=== PATIENT | male | born 1955 | race Caucasian/White ===

== ENCOUNTER 2018-08-20 07:43 | Day surgery (SDC) | payer OTHER, SELFPAY ==
[2018-08-20 08:12] VITALS: BP 163/96; PULSE 76; RESP 16; TEMP 36.6; O2SAT 97
[2018-08-20 08:39] LABS: INR 1.1 (1.0-3.5)
[2018-08-20 08:56] LABS: ALT 30 U/L (12-78); AST 25 U/L (15-37); Albumin 3.9 g/dL (3.4-5.0); Alkaline Phosphatase 80 U/L (46-116); Anion Gap 10.6 mmol/L (3-11); BUN 17 mg/dL (7-18); Bilirubin, Total 0.6 mg/dL (0.2-1.0); CO2 28.4 mmol/L (21.0-32.0); CREATININE 1.11 mg/dL (0.70-1.30); Calcium 9.4 mg/dL (8.5-10.1); Chloride 102 mmol/L (98-107); Glucose 104 mg/dL (70-100); Sodium 141 mmol/L (136-145); Total Protein 8.6 g/dL (6.4-8.2)
[2018-08-20] MEDS: Lactated Ringers 1,000 ML 30 ML IV (09:18)
--- NOTE | 2018-08-20 13:17 | W.PM.HP.N ---
Date of service: 08/20/18 Time of Service: 13:17 Assessment and Plan (1) Cirrhosis of liver: Current visit: No Status: Acute Recommended upper endoscopy to evaluate for gastric and esophageal varices due to new finding of cirrhosis of the liver. Reviewed the procedure with Mr. yates, and discussed the risks of the procedure. All his questions were answered to his satisfaction. Consents been obtained to proceed with EGD. History of Present Illness Chief Complaint: Cirrhosis of the liver Narrative: 62 gentlemen recently diagnosed with cirrhosis of the liver, currently being treated for Hepatitis C. Review of Systems Constitutional Denies body ache(s), Denies chills, Denies fatigue, Denies fever(s), Denies malaise, Denies poor appetite and Denies weight loss Eyes Denies blurry vision, Denies diplopia and Denies loss of vision ENT Denies vertigo, Denies dizziness, Denies hearing loss, Denies hoarseness, Denies epistaxis and Denies tinnitus Cardiovascular Denies chest pain with activity, Denies lightheadedness, Denies radiating jaw, neck or arm pain and Denies dyspnea Respiratory Denies chest congestion, Denies cough, Denies dyspnea and Denies wheezing Gastrointestinal Denies abdominal pain, Denies melena, Denies early satiety, Denies heartburn, Denies nausea and Denies vomiting Neurologic Denies vertigo, Denies dizziness, Denies loss of vision, Denies restless legs and Denies seizure-like activity Psychiatric Denies abnormal sleep pattern, Denies anxiety, Denies irritability and Denies mood swings Endocrine Denies fatigue Allergic/Immunologic Denies wheezing PFSH Medical History Cirrhosis (Acute) History of alcohol abuse (Acute) History of intravenous drug use in remission (Acute) Splenomegaly (Acute) COPD (chronic obstructive pulmonary disease) (Chronic) HTN (hypertension) (Chronic) Hepatitis C (Chronic) Psoriasis (Chronic) Social History Smoking/Tobacco Use Status: Former Tobacco Use alcohol intake: former substance use type: former substance user and methamphetamine Surgical History History of cardiac catheterization (Resolved) Meds Home Medications Medication Instructions Recorded Confirmed Type amitriptyline 10 mg tablet 20 mg PO DAILY 06/04/18 08/20/18 History ibuprofen 200 mg tablet 200 mg PO BID PRN tab 06/04/18 08/20/18 History levalbuterol 1.25 mg/3 mL solution 1.25 mg IH BID ml 06/04/18 07/08/18 History for nebulization levalbuterol HFA 45 mcg/actuation 2 inh IH TID PRN gm 06/04/18 07/08/18 History aerosol inhaler mometasone 220 mcg (30 doses) 1 inh IH DAILY each 06/04/18 07/08/18 History breath activated powder inhaler sofosbuvir 400 mg-velpatasvir 100 1 tab PO DAILY 06/04/18 07/08/18 History mg tablet triamcinolone acetonide 0.1 % 1 applic TP DAILY 06/04/18 08/20/18 History topical cream Allergies Allergy/AdvReac Type Severity Reaction Status Date / Time No Known Allergies Allergy Verified 08/20/18 08:06 Exam Const General: cooperative and no acute distress Nutritional Appearance: average body habitus Orientation: alert, awake and oriented x3 HENMT Head: normal to inspection, normocephalic and atraumatic Ears: hearing grossly normal bilaterally General nose exam: external nose normal Face and sinus: normal facial exam Mouth: oral mucosae normal Teeth and gingiva: poor dentition Eyes General: appearance normal, both eyes and all related structures Periorbital: periorbital findings normal Sclera: sclerae normal Pupils: PERRL EOM: EOM intact bilaterally Neck Neck: normal visual inspection, trachea midline and supple Chest Chest: normal inspection of the chest Resp Effort & Inspection: normal respiratory effort Auscultation: clear to auscultation bilaterally Cardio Jugular venous pressure: no JVD Rate: regular rate Rhythm: regular rhythm Heart Sounds: S1 normal and S2 normal GI Inspection: non-distended Palpation: soft, no guarding and nontender Neuro General: moves all extremities, no focal motor deficits and CN's II-XI intact bilaterally Extrem General: normal capillary refill and no clubbing, cyanosis or edema Psych Appearance: grossly normal Affect: irritable affect Judgment: judgment good Results Labs : 08/20/18 08:12 Laboratory Results - last 24 hr 08/20/18 08/20/18 08:12 08:12 PT 11.0 H INR 1.1 Sodium 141 Potassium 4.0 Chloride 102 Carbon Dioxide 28.4 Anion Gap 10.6 BUN 17 Creatinine 1.11 Estimated GFR/1.73 m2 >= 60.00 Glucose 104 H Calcium 9.4 Total Bilirubin 0.6 AST 25 ALT 30 Alkaline Phosphatase 80 Total Protein 8.6 H Albumin 3.9 Last Vital Signs Temp 36.6 C 08/20/18 08:12 Pulse 76 08/20/18 08:12 Resp 16 08/20/18 08:12 BP 163/96 H 08/20/18 08:12 Pulse Ox 97 08/20/18 08:12
--- NOTE | 2018-08-20 13:49 | STOM_PTH ---
PATIENT: NATHALIE GONZALES LOC: [facility] U#:[id number] AGE/SX: 62/M ROOM: RE08/20/[address]: Jose Hui DO : 1955 BED: DIS: 08/20/2018 SPEC #: [id number] RECD: 08/20/18 17:54 STATUS: [place] REQ #: [id number] PRASANTH: 08/20/18 13:[address]: Jose Hui DEPT: Surgical Specimen RECD BY: Isabelle Nichols ENTERED: 08/20/18 17:54 SP TYPE: STOMACH OTHR DR: Kyra Mena Tissues: 1 - STOMACH BIOPSY Procedures: GROSS AND MICRO LEVEL 4 Comments: [id number]
--- NOTE | 2018-08-20 14:13 | W.PM.OP ---
Date of service: 08/20/18 Time of Service: 13:55 Operative Note DATE OF PROCEDURE: 08/20/18 PRE-OP DIAGNOSIS: Cirrhosis of the liver POST-OP DIAGNOSIS: other (1. Cirrhoisis of the liver 2. Grade I esophageal varices 3. Gastritis 4. Duodentitis) PROCEDURE: Esophagogastroduodenoscopy with biopsy by cold forceps SURGEON: Jose Hui ANESTHESIA: MAC (Denia Alvarado, POWER PLANT OPERATORS SUPERVISOR: ASA 2 Mallampati class) ESTIMATED BLOOD LOSS: 1 PATHOLOGY: other (Gastric antral biopsies) COMPLICATIONS: None Patient was transported to: same day Patient's condition: stable Implants: Pro time INR 1.1 Indications: 62-year-old male with chronic hepatitis C currently under treatment. He is recently been diagnosed with cirrhosis of the liver, and it was recommended he undergo upper endoscopy to assess for gastric and/or esophageal varices. The procedure has been discussed with Mr. yates, and the risk of the procedure reviewed. All his questions were answered to his satisfaction. Consents been obtained to proceed. Findings: In examining the upper gastrointestinal tract from the oropharynx to the third portion of the duodenum, grade 1 esophageal varices were noted at the GE junction, and inflammatory changes were noted both in the duodenum and stomach with multiple shallow ulcerations seen in the stomach to clear in the gastric antrum. Procedure Description: The patient was brought to the procedure room. Monitoring for telemetry, end-tidal CO2, O2 saturation, blood pressure were applied. An appropriate timeout was taken reviewing the patient's identification, allergies, medications,and procedure. A bite was placed, and sedation was titrated for effect by the POWER PLANT OPERAT[employer] SUPERVISOR. An Olympus variable stiffness endoscope was advanced from the oropharynx to the third portion of the duodenum without difficulty. The scope was then withdrawn in circumferential manner from the duodenum back to the oropharynx. In performing withdrawal of the scope, the first and second portions of the duodenum were noted to have multiple patchy areas of inflammation with some shallow ulcerations in various stages of healing. Scope was drawn into the stomach the gastric antrum was noted to have to be markedly inflamed with multiple areas of shallow ulceration of various healing stages, and retroflexion of the scope in the stomach showed inflammatory changes extending up into the fundus through the body of the stomach. Biopsies were taken from the gastric antrum and submitted for pathology. The scope was withdrawn into the esophagus at the GE junction noticed grade 1 esophageal varices. I withdrew the scope through the remainder of the esophagus all which appear grossly normal. Scope was then withdrawn terminating the upper endoscopy. There were no complications during the case the patient tolerated very well, and was returned to day surgery in good condition. Plan: We will await pathology before making further recommendations. Esophageal varices as described above.
--- NOTE | 2018-08-20 14:25 | W.PM.DSUDISC ---
Discharge Plan Disposition Patient Disposition[facility] Condition: Fair Discharge Details Reason For Visit: Cirrhosis of the liver Attending Provider: Jose Hui Primary Care Provider: Kyra Mena Home Meds and New Rx's Prescriptions: Continue amitriptyline 10 mg tablet 20 mg PO DAILY RF: 0 mometasone [Asmanex Twisthaler] 220 mcg (30 doses) aerosol powdr breath activated 1 inh IH DAILY RF: 0 sofosbuvir-velpatasvir [Epclusa] 400-100 mg tablet 1 tab PO DAILY RF: 0 ibuprofen 200 mg tablet 200 mg PO BID PRNRF: 0 levalbuterol HCl 1.25 mg/3 mL solution for nebulization 1.25 mg IH BID RF: 0 triamcinolone acetonide 0.1 % cream 1 applic TP DAILY RF: 0 levalbuterol tartrate [Xopenex HFA] 45 mcg/actuation HFA aerosol inhaler 2 inh IH TID PRNRF: 0 Discharge Instructions Instructions: Upper Endoscopy (DC) Stand Alone Forms: [facility] Post EGD Instructions, Sky Boland ([facility]) Activity:: Activity as Tolerated Diet:: As Tolerated Discharge Orders Discharge Orders: Discharge Order (Routine); Ordered 08/20/18 Ordered By: Jose Hui DS: Diagnosis Discharge Diagnosis (1) Cirrhosis of liver: Status: Acute Asessment and Plan: Esophagogastroduodenoscopy with biopsy by cold forceps performed: Operative Note DATE OF PROCEDURE: 08/20/18 PRE-OP DIAGNOSIS: Cirrhosis of the liver POST-OP DIAGNOSIS: other (1. Cirrhoisis of the liver 2. Grade I esophageal varices 3. Gastritis 4. Duodentitis) PROCEDURE: Esophagogastroduodenoscopy with biopsy by cold forceps SURGEON: Jose Hui ANESTHESIA: MAC (Denia Alvarado, BROADCAST JOURNALIST: ASA 2 Mallampati class) ESTIMATED BLOOD LOSS: 1 PATHOLOGY: other (Gastric antral biopsies) COMPLICATIONS: None Patient was transported to: same day Patient's condition: stable Pro time INR 1.1 Indications: 62-year-old male with chronic hepatitis C currently under treatment. He is recently been diagnosed with cirrhosis of the liver, and it was recommended he undergo upper endoscopy to assess for gastric and/or esophageal varices. The procedure has been discussed with trudy, and the risk of the procedure reviewed. All his questions were answered to his satisfaction. Consents been obtained to proceed. Findings: In examining the upper gastrointestinal tract from the oropharynx to the third portion of the duodenum, grade 1 esophageal varices were noted at the GE junction, and inflammatory changes were noted both in the duodenum and stomach with multiple shallow ulcerations seen in the stomach to clear in the gastric antrum. Procedure Description: The patient was brought to the procedure room. Monitoring for telemetry, end-tidal CO2, O2 saturation, blood pressure were applied. An appropriate timeout was taken reviewing the patient's identification, allergies, medications,and procedure. A bite was placed, and sedation was titrated for effect by the BROADCAST JOURNALIST. An Olympus variable stiffness endoscope was advanced from the oropharynx to the third portion of the duodenum without difficulty. The scope was then withdrawn in circumferential manner from the duodenum back to the oropharynx. In performing withdrawal of the scope, the first and second portions of the duodenum were noted to have multiple patchy areas of inflammation with some shallow ulcerations in various stages of healing. Scope was drawn into the stomach the gastric antrum was noted to have to be markedly inflamed with multiple areas of shallow ulceration of various healing stages, and retroflexion of the scope in the stomach showed inflammatory changes extending up into the fundus through the body of the stomach. Biopsies were taken from the gastric antrum and submitted for pathology. The scope was withdrawn into the esophagus at the GE junction noticed grade 1 esophageal varices. I withdrew the scope through the remainder of the esophagus all which appear grossly normal. Scope was then withdrawn terminating the upper endoscopy. There were no complications during the case the patient tolerated very well, and was returned to day surgery in good condition. Plan: We will await pathology before making further recommendations. Esophageal varices as described above.
--- NOTE | 2018-08-20 14:28 | PDOC.DSDIS_ITS ---
Discharge Plan Disposition Patient Disposition: [facility] Condition: Fair Discharge Details Reason For Visit: Cirrhosis of the liver Attending Provider: Jose uHi Primary Care Provider: Kyra Mena Home Meds and New Rx's Prescriptions: Continue amitriptyline 10 mg tablet 20 mg PO DAILY RF: 0 mometasone [Asmanex Twisthaler] 220 mcg (30 doses) aerosol powdr breath activated 1 inh IH DAILY RF: 0 sofosbuvir-velpatasvir [Epclusa] 400-100 mg tablet 1 tab PO DAILY RF: 0 ibuprofen 200 mg tablet 200 mg PO BID PRNRF: 0 levalbuterol HCl 1.25 mg/3 mL solution for nebulization 1.25 mg IH BID RF: 0 triamcinolone acetonide 0.1 % cream 1 applic TP DAILY RF: 0 levalbuterol tartrate [Xopenex HFA] 45 mcg/actuation HFA aerosol inhaler 2 inh IH TID PRNRF: 0 Discharge Instructions Instructions: Upper Endoscopy (DC) Stand Alone Forms: [facility] Post EGD Instructions, Sky Boland ([facility]) Activity:: Activity as Tolerated Diet:: As Tolerated Discharge Orders Discharge Orders: Discharge Order (Routine); Ordered 08/20/18 Ordered By: Jose Hui DS: Diagnosis Discharge Diagnosis (1) Cirrhosis of liver: Status: Acute Asessment and Plan: Esophagogastroduodenoscopy with biopsy by cold forceps performed: Operative Note DATE OF PROCEDURE: 08/20/18 PRE-OP DIAGNOSIS: Cirrhosis of the liver POST-OP DIAGNOSIS: other (1. Cirrhoisis of the liver 2. Grade I esophageal varices 3. Gastritis 4. Duodentitis) PROCEDURE: Esophagogastroduodenoscopy with biopsy by cold forceps SURGEON: Jose Hui ANESTHESIA: MAC (Denia Alvarado, PRODUCTIVITY ENGINEER: ASA 2 Mallampati class) ESTIMATED BLOOD LOSS: 1 PATHOLOGY: other (Gastric antral biopsies) COMPLICATIONS: None Patient was transported to: same day Patient's condition : stable Pro time INR 1.1 Indications: 62-year-old male with chronic hepatitis C currently under treatment. He is recently been diagnosed with cirrhosis of the liver, and it was recommended he undergo upper endoscopy to assess for gastric and/or esophageal varices. The procedure has been discussed with trudy, and the risk of the procedure reviewed. All his questions were answered to his satisfaction. Consents been obtained to proceed. Findings: In examining the upper gastrointestinal tract from the oropharynx to the third portion of the duodenum, grade 1 esophageal varices were noted at the GE junction, and inflammatory changes were noted both in the duodenum and stomach with multiple shallow ulcerations seen in the stomach to clear in the gastric antrum. Procedure Description: The patient was brought to the procedure room. Monitoring for telemetry, end- tidal CO2, O2 saturation, blood pressure were applied. An appropriate timeout was taken reviewing the patient's identification, allergies, medications,and procedure. A bite was placed, and sedation was titrated for effect by the PRODUCTIVITY ENGINEER. An Olympus variable stiffness endoscope was advanced from the oropharynx to the third portion of the duodenum without difficulty. The scope was then withdrawn in circumferential manner from the duodenum back to the oropharynx. In performing withdrawal of the scope, the first and second portions of the duodenum were noted to have multiple patchy areas of inflammation with some shallow ulcerations in various stages of healing. Scope was drawn into the stomach the gastric antrum was noted to have to be markedly inflamed with multiple areas of shallow ulceration of various healing stages, and retroflexion of the scope in the stomach showed inflammatory changes extending up into the fundus through the body of the stomach. Biopsies were taken from the gastric antrum and submitted for pathology. The scope was withdrawn into the esophagus at the GE junction noticed grade 1 esophageal varices. I withdrew the scope through the remainder of the esophagus all which appear grossly normal. Scope was then withdrawn terminating the upper endoscopy. There were no complications during the case the patient tolerated very well, and was returned to day surgery in good condition. Plan: We will await pathology before making further recommendations. Esophageal varices as described above.
[2018-08-20 14:35] VITALS: BP 185/105; PULSE 71; RESP 16; TEMP 36.6; O2SAT 99
--- NOTE | 2018-08-20 15:43 | NUR.NOTE ---
Nursing Note: 1535; this nurse called [facility] at [phone] and spoke to Dalia Chavez in medical regarding pt's. visit. Medical made aware that pt. had upper endoscopy with propofol and viscous lidocaine. Biopsies were taken and facility/PCP to be notified by MD when results are back. Medical aware that pt. left [facility] denying pain or nausea. Pt. had PO liquid prior to leaving with no complications. Medical aware that Pt's BP was 163/99 upon arrival to [facility] and 174/109 after procedure. Medical aware BP was 185/105 (and pt. more becoming more agitated because he had been at hospital for long time) upon discharge and Anesthesia aware. Medical aware that Anesthesia wanted pt. to follow up with PCP regarding elevated BP.
== END 2018-08-20 15:03 | disposition home or self-care (01) ==
PROVIDERS: PCP Nurse Practitioner Adult Health; Visit Provider Surgery
PROC: 0DJ68ZZ Inspection of Stomach, Via Natural or Artificial Opening Endoscopic (ICD-10-PCS; CPT 43235; principal; 2018-08-20 12:00)
DX: K74.60 Unspecified cirrhosis of liver (principal); B18.2 Chronic viral hepatitis C; I85.10 Secondary esophageal varices without bleeding; F10.11 Alcohol abuse, in remission; Z87.891 Personal history of nicotine dependence; J44.9 Chronic obstructive pulmonary disease, unspecified; I10 Essential (primary) hypertension
CPT/HCPCS: 43239; 36415; 80053; 88305; NC; 85610

== ENCOUNTER 2019-04-11 08:36 | Inpatient (IN) | payer MEDICAID, OTHER, MEDICARE, SELFPAY ==
[2019-04-11] VITALS (82 sets, daily range): BP systolic 131–182; BP diastolic 66–94; PULSE 79–122; RESP 8–25; TEMP 36.7–40.2; O2SAT 92–98
[2019-04-11] MEDS: Normal Saline 1,000 ML 1000 ML IV ×2 (08:47→10:35)
[2019-04-11] MEDS: Normal Saline Flush 10 ML SYR IVP (08:47)
[2019-04-11] MEDS: Acetaminophen 500 MG TAB (08:48)
--- NOTE | 2019-04-11 08:51 | ED.GENADUL_ITS ---
Discharge Plan Disposition Patient Disposition: [facility] INPATIENT Condition: Stable Discharge Details Chief Complaint: SOB Clinical Impression: Sepsis, Pneumonia Admit Date/Time: 04/11/19 10:55 Admit Provider: Amanda Bradford Attending Provider: Amanda Bradford Primary Care Provider: Kyra Mena ED Provider: Monique Francois Discharge Data Discharge Date/Time-TO BE ENTERED AT DEPARTURE: 04/11/19 11:51 Medical Decision Making 63-year-old male with a history of previous alcohol and IV drug abuse, cirrhosis, hepatitis C, COPD, hypertension who presents from the nursing home with complaint of not feeling well, chest pain, shortness of breath and temp of 104. Patient is a poor historian but able to obtain some of this history from the correctional facility staff as well as patient. He also had a mechanical fall last night in which she fell onto his left lower back. Has been able to ambulate since then. Denies head injury. BP hypertensive. Heart rate 120s. Temp 104.4 on arrival. O2 sat 95% on room air. He has diminished breath sounds throughout but no crackles, wheezing or rhonchi. Speaking in 4-5 word sentences but no significant distress. He has a murmur. Normal ENT exam. No meningeal signs. Differential diagnosis includes pneumonia, UTI, endocarditis, pericarditis, PE, ACS. He has chronic neck pain and denies headache and no meningeal signs so doubt meningitis but still could be on differential. Will place an IV, bolus ivf, tylenol, septic workup including lactate, blood cultures, cxr, ua. EKG notes a rate of 120, sinus no acute ST elevation or depression. 1030 -- labs and imaging reviewed - wbc 11, lactate 2.7, Mg 1.5, Trop negative, urinalysis negative. CT chest notes multifocal pneumonia thoracic compression deformities, no PE or dissection. Lumbar spine x-ray negative. Patient states he feels much better. O2 sat 96% on 2 L. Speaking in full sentences. Temp now 102. Heart rate still 100s. We will continue IV fluids and admit for sepsis in the setting of pneumonia. Patient will likely need echocardiogram to rule out any additional source. Will give Toradol, Rocephin and Zithromax. 1050 --discussed with hospitalist -accepts patient for admission. Medical Records Medical records reviewed: Yes I reviewed the patient's medical records. Imaging Data Radiologic Study: Radiologist's impression: CT ANGIOGRAPHY OF THE CHEST: Routine examination was performed. No priors for comparison. There is no evidence of a pulmonary embolus. The thoracic aorta is intact. No evidence of aneurysm or dissection. Heart size is within normal limits. No significant pericardial effusion is seen. Coronary artery calcifications are present. There are scattered air space opacities involving both lower lobes, right middle lobe and left lingula. The tracheal air shadow is unremarkable. Mild central lobular emphysematous changes are seen in the lungs. No pneumothorax or pleural effusion is seen. Upper abdominal images show lobulated contour of the liver suggesting hepatic cirrhosis. The spleen also appears enlarged. There are compression deformities at T6 and T8. There is loss of approximately 20-30% of the height of the vertebral body. No retropulsion or significant central spinal canal stenosis is present. Multi-level degenerative changes are seen in the spine. IMPRESSION: 1. No evidence of pulmonary embolus, thoracic aortic dissection or aneurysm. 2. Multifocal air space opacities suspicious for pneumonia. A follow up chest x-ray or CT scan of the chest is recommended to document complete resolution. 3. Mild central lobular emphysematous changes in the lungs 4. Findings of nodular liver suspicious for hepatic cirrhosis, splenomegaly 5. Compression deformities in the thoracic spine. No central spinal canal stenosis results. LUMBAR SPINE: AP, lateral and bilateral oblique views. No priors for comparison. There are five lumbar type vertebral bodies. There is normal alignment. No spondylolysis or spondylolisthesis seen. No acute fractures or subluxations present. Moderately severe degenerative changes are present throughout the lumbar spine. There is contrast in the renal collecting systems from the patient's CT scan of the chest from the same day. IMPRESSION: No acute fractures or subluxations of the lumbar spine. Lab Data Lab results reviewed: Yes I reviewed the patient's lab results. 04/11/19 09:00 Blood Blood Culture - Pending 04/11/19 09:18 Blood Blood Culture - Pending Laboratory Tests Range/Units 04/11/19 04/11/19 04/11/19 08:47 08:47 08:47 WBC (4.4-10.8) k/cumm 11.55 H RBC (4.50-6.00) m/cumm 4.30 L Hgb (13.5-17.5) g/dL 13.2 L Hct (40.0-50.0) % 38.3 L MCV (80-95) fL 89.1 MCH (27.0-33.0) pg 30.7 MCHC (32.0-36.0) g/dL 34.5 RDW (11.8-14.1) % 15.0 H Plt Count (130-400) x1000/uL 105 L MPV (8.0-11.0) fL 9.1 Immature Gran % 0.3 Neutrophils % 92.2 Lymphocytes % 3.0 Monocytes % 3.6 Eosinophils % 0.7 Basophils % 0.2 Absolute Neutrophils (1.2-6.7) k/cumm 10.65 H Absolute Lymphocytes (1.2-3.4) k/cumm 0.35 L Absolute Monocytes (0.11-0.7) k/cumm 0.42 Absolute Eosinophils (0.0-0.7) k/cumm 0.08 Absolute Basophils (0.0-0.2) k/cumm 0.02 PT (9.3-11.0) sec 10.8 INR (0.9-1.1) 1.1 APTT (21.0-31.4) sec 22.8 Sodium (136-145) mmol/L 141 Potassium (3.5-5.1) mmol/L 3.9 Chloride (98-107) mmol/L 99 Carbon Dioxide (21.0-32.0) mmol/L 27.7 Anion Gap (3-11) mmol/L 14.3 H BUN (7-18) mg/dL 17 Creatinine (0.70-1.30) mg/dL 1.00 Estimated GFR/1.73 m2 (mL/min/1.73m2) >= 60.00 Glucose (70-100) mg/dL 131 H Lactate (0.6-1.4) mmol/l Calcium (8.5-10.1) mg/dL 8.8 Magnesium (1.8-2.4) mg/dL 1.5 L Total Bilirubin (0.2-1.0) mg/dL 0.5 AST (15-37) U/L 16 ALT (12-78) U/L 21 Alkaline Phosphatase (46-116) U/L 89 Troponin I (0.00-0.06) ng/mL < 0.05 Total Protein (6.4-8.2) g/dL 8.0 Albumin (3.4-5.0) g/dL 3.4 Urine Color (Yellow) Urine Clarity (Clear) Urine pH (5-8) Ur Specific [place] (1.005-1.025) Urine Protein (Negative) mg/dL Urine Ketones (Negative) mg/dL Urine Blood (Negative) Urine Nitrite (Negative) Urine Bilirubin (Negative) Urine Urobilinogen (Up TO 0.2) EU/dL Ur Leukocyte Esterase (Negative) Urine Glucose (Negative) mg/dL Range/Units 04/11/19 04/11/19 09:00 09:15 WBC (4.4-10.8) k/cumm RBC (4.50-6.00) m/cumm Hgb (13.5-17.5) g/dL Hct (40.0-50.0) % MCV (80-95) fL MCH (27.0-33.0) pg MCHC (32.0-36.0) g/dL RDW (11.8-14.1) % Plt Count (130-400) x1000/uL MPV (8.0-11.0) fL Immature Gran % Neutrophils % Lymphocytes % Monocytes % Eosinophils % Basophils % Absolute Neutrophils (1.2-6.7) k/cumm Absolute Lymphocytes (1.2-3.4) k/cumm Absolute Monocytes (0.11-0.7) k/cumm Absolute Eosinophils (0.0-0.7) k/cumm Absolute Basophils (0.0-0.2) k/cumm PT (9.3-11.0) sec INR (0.9-1.1) APTT (21.0-31.4) sec Sodium (136-145) mmol/L Potassium (3.5-5.1) mmol/L Chloride (98-107) mmol/L Carbon Dioxide (21.0-32.0) mmol/L Anion Gap (3-11) mmol/L BUN (7-18) mg/dL Creatinine (0.70-1.30) mg/dL Estimated GFR/1.73 m2 (mL/min/1.73m2) Glucose (70-100) mg/dL Lactate (0.6-1.4) mmol/l 2.7 H Calcium (8.5-10.1) mg/dL Magnesium (1.8-2.4) mg/dL Total Bilirubin (0.2-1.0) mg/dL AST (15-37) U/L ALT (12-78) U/L Alkaline Phosphatase (46-116) U/L Troponin I (0.00-0.06) ng/mL Total Protein (6.4-8.2) g/dL Albumin (3.4-5.0) g/dL Urine Color (Yellow) Yellow Urine Clarity (Clear) Clear Urine pH (5-8) 6.0 Ur Specific [place] (1.005-1.025) 1.015 Urine Protein (Negative) mg/dL Negative Urine Ketones (Negative) mg/dL Negative Urine Blood (Negative) Negative Urine Nitrite (Negative) Negative Urine Bilirubin (Negative) Negative Urine Urobilinogen (Up TO 0.2) EU/dL 0.2 Ur Leukocyte Esterase (Negative) Negative Urine Glucose (Negative) mg/dL 100 ECG Data Attestation: I personally reviewed and interpreted this ECG (s) as follows: Interpretation: rate of 120, sinus, no acute st elevation or depression, twi in V2, no old EKG to compare. QTc 444, QRS 102. HPI General Mode of arrival: EMS . Date/Time Provider Initiated Documentation: 04/11/19 09:12 . Limitations to Documentation: no limitations . Information obtained by: patient . HPI Narrative: Pt is a 63yo M with a previous history of alcohol and IV drug abuse, COPD, cirrhosis, hepatitis C who presents from the nursing home for an inmate not feeling well with temp 104. Patient is a poor historian but is able to state that he has substernal chest pain without radiation and pain with deep breath. He also admits to a fall last night in which he tripped on his flip-flops and fell hitting his left lower back and now has some left lower back pain. He denies headache, head injury, LOC, vomiting. He denies any ear pain, sore throat, vomiting, diarrhea, urinary symptoms, recent tick bite or rash. He denies any alcohol or IV drug use. He admits to chronic neck pain associated with working out and states is no worse than usual. Related Data Home Medications Medication Instructions Recorded Confirmed amitriptyline 10 mg tablet 20 mg PO DAILY 06/04/18 04/11/19 ibuprofen 200 mg tablet 200 mg PO BID PRN tab 06/04/18 04/11/19 levalbuterol tartrate 45 2 inh IH TID PRN gm 06/04/18 04/11/19 mcg/actuation aerosol inhaler mometasone 220 mcg (30 doses) 1 inh IH DAILY each 06/04/18 04/11/19 breath activated powder inhaler triamcinolone acetonide 0.1 % 1 applic TP DAILY 06/04/18 04/11/19 topical cream losartan 50 mg PO DAILY 04/11/19 04/11/19 azithromycin 250 mg PO DAILY 3 Days #3 tab 04/13/19 cefpodoxime 200 mg PO BID #8 tab 04/13/19 lidocaine [Lidoderm] 1 patch TOPICAL DAILY@1800 #14 ea 04/13/19 Previous Rx's Medication Instructions Recorded azithromycin 250 mg PO DAILY 3 Days #3 tab 04/13/19 cefpodoxime 200 mg PO BID #8 tab 04/13/19 lidocaine [Lidoderm] 1 patch TOPICAL DAILY@1800 #14 ea 04/13/19 Allergies Allergy/AdvReac Type Severity Reaction Status Date / Time No Known Allergies Allergy Verified 04/11/19 08:44 General Stated Complaint: SOB SANTY: 2 Review of Systems Review of Systems All systems reviewed & are unremarkable except as noted in HPI and below Constitutional Reports as per HPI, Denies chills and Denies fever(s) Eyes Denies blurry vision ENT Denies dizziness, Denies sore throat and Denies throat swelling Cardiovascular Reports chest pain and Reports dyspnea Respiratory Denies cough and Reports dyspnea Gastrointestinal Denies abdominal pain, Denies diarrhea and Denies vomiting Genitourinary Denies hematuria and Denies dysuria Musculoskeletal Denies back pain and Denies numbness Integumentary/Breasts Denies lesions and Denies rash Neurologic Denies dizziness, Denies focal weakness and Denies numbness Allergic/Immunologic Denies throat swelling [facility] Medical History Cirrhosis (Acute) COPD (chronic obstructive pulmonary disease) (Chronic) Hepatitis C (Chronic) History of alcohol abuse (Acute) History of intravenous drug use in remission (Acute) HTN (hypertension) (Chronic) Psoriasis (Chronic) Splenomegaly (Acute) Surgical History History of cardiac catheterization (Resolved) History of esophagogastroduodenoscopy (EGD) (Resolved ~08/20/18) History of tonsillectomy (Chronic) Family History Mother Heart disease Diabetes Hypertension Father Heart disease Stroke Diabetes Hypertension Paternal Uncle Stroke Social History Smoking/Tobacco Use Status: Former Tobacco Use Alcohol Intake: former Drug use: Current Sobriety Substance use type: former substance user and methamphetamine Do you feel safe at home: Yes Do you feel safe in your relationship?: Yes Exam Const General: cooperative, no acute distress and other (drowsy appearing, skin warm to touch) Orientation: awake and oriented x3 HENMT Head: normal to inspection Ears: hearing grossly normal bilaterally, external ears normal and TM's normal bilaterally General nose exam: external nose normal Face and sinus: normal facial exam Mouth: oral mucosae normal Teeth and gingiva: dentition normal Throat: posterior oropharynx normal Eyes General: appearance normal, both eyes and all related structures Eyelids: eyelids normal Pupils: PERRL EOM: EOM intact bilaterally Neck Neck: normal visual inspection Lymphatic: no lymphadenopathy noted Chest Chest: normal inspection of the chest Resp Effort & Inspection: normal respiratory effort and able to speak in complete sentences Auscultation: clear to auscultation bilaterally Cardio Rate: regular rate Rhythm: regular rhythm Heart Sounds: murmur systolic III/ and at the left sternal border GI Inspection: normal to inspection Palpation: soft, not firm, no guarding, no hepatosplenomegaly, no masses and nontender Auscultation: normal bowel sounds Back/Spine/Pelvis Back: no CVA tenderness Skin General skin exam: no rashes or lesions noted Neuro General: alert and awake Cranial Nerves: CN's II-XI intact bilaterally Cognition: normal cognition Speech: speech normal Gait: normal gait Motor: muscle tone normal throughout and strength 5/5 throughout Sensory Exam: no sensory deficits noted Extrem General: normal to inspection, full ROM, normal capillary refill and no edema Psych Appearance: grossly normal Mental Status: mental status grossly normal Speech and Movement: speech and movement normal Affect: normal affect Thought Process: normal Course Vital Signs Temperature 104.4 F H 04/11/19 08:40 Pulse 122 H 04/11/19 08:40 Respiratory Rate 14 04/11/19 08:40 Blood Pressure 182/94 H 04/11/19 08:40 Pulse Oximetry 95 04/11/19 08:40 Temperature 104.4 F H 04/11/19 08:40 Temperature Source Temporal Artery Scan 04/11/19 08:40 Pulse 122 H 04/11/19 08:40 Respiratory Rate 18 04/11/19 08:45 Respiratory Effort 04/11/19 08:45 Respiratory Depth Normal 04/11/19 08:45 Respiratory Pattern Normal 04/11/19 08:45 Blood Pressure 182/94 H 04/11/19 08:40 Pulse Oximetry 95 04/11/19 08:40 Oxygen Delivery Method Room Air 04/11/19 08:40 Oxygen Flow Rate 0 04/11/19 08:40 Pain Level 8 04/11/19 08:40 Lab/Test Results Lab/Test Results: 04/11/19 08:47 Blood Blood Culture - Pending 04/11/19 08:47 Blood Blood Culture - Pending
[2019-04-11 09:05] LABS: Abs Immature Grans 0.03 k/cumm (0.0-0.09); Absolute Basophil Count 0.02 k/cumm (0.0-0.2); Absolute Eosinophil Count 0.08 k/cumm (0.0-0.7); Absolute Lymphocyte Count 0.35 k/cumm (1.2-3.4); Absolute Monocyte Count 0.42 k/cumm (0.11-0.7); Absolute Neutrophil Count 10.65 k/cumm (1.2-6.7); Basophils % 0.2; Eosinophils % 0.7; HCT 38.3 % (40.0-50.0); HGB 13.2 g/dL (13.5-17.5); Immature Grans % 0.3; Mean Corp. HGB Concentration 34.5 g/dL (32.0-36.0); Mean Corpuscular Hemoglobin 30.7 pg (27.0-33.0); Mean Corpuscular Volume 89.1 fL (80-95); Mean Platelet Volume 9.1 fL (8.0-11.0); Monocytes % 3.6; Neutrophils % 92.2; Platelet Count 105 x1000/uL (130-400); White Blood Cell Count 11.55 k/cumm (4.4-10.8)
[2019-04-11 09:06] LABS: Lactate-non-spesis 2.7 mmol/l (0.6-1.4)
[2019-04-11 09:18] LABS: INR 1.1 (0.9-1.1); PTT Activated 22.8 sec (21.0-31.4); Prothrombin Time 10.8 sec (9.3-11.0)
[2019-04-11 09:23] LABS: ALT 21 U/L (12-78); AST 16 U/L (15-37); Albumin 3.4 g/dL (3.4-5.0); Alkaline Phosphatase 89 U/L (46-116); Anion Gap 14.3 mmol/L (3-11); BUN 17 mg/dL (7-18); Bilirubin, Total 0.5 mg/dL (0.2-1.0); CO2 27.7 mmol/L (21.0-32.0); Calcium 8.8 mg/dL (8.5-10.1); Chloride 99 mmol/L (98-107); Glucose 131 mg/dL (70-100); Magnesium 1.5 mg/dL (1.8-2.4); Potassium 3.9 mmol/L (3.5-5.1); Sodium 141 mmol/L (136-145)
[2019-04-11 09:24] LABS: Troponin I < 0.05 ng/mL (0.00-0.06)
[2019-04-11] MEDS: Omnipaque 350 MG/ML 100 ML BTL IJ (09:57)
[2019-04-11 09:58] LABS: Bilirubin Negative (Negative); Blood Negative (Negative); Clarity Clear (Clear); Glucose 100 mg/dL (Negative); Ketones Negative (Negative); Leukocyte Esterase Negative (Negative); Nitrite Negative (Negative); Specific Gravity 1.015 (1.005-1.025); Urobilinogen 0.2 EU/dL (Up TO 0.2)
--- NOTE | 2019-04-11 10:13 | DI.RAD_ITS ---
SYMPTOM/DIAGNOSIS: S/P FALL, R/O ACUTE FRACTURE LUMBAR SPINE: AP, lateral and bilateral oblique views. No priors for comparison. There are five lumbar type vertebral bodies. There is normal alignment. No spondylolysis or spondylolisthesis seen. No acute fractures or subluxations present. Moderately severe degenerative changes are present throughout the lumbar spine. There is contrast in the renal collecting systems from the patient's CT scan of the chest from the same day. IMPRESSION: No acute fractures or subluxations of the lumbar spine. The findings were discussed with Dr. Francois of the Emergency Department on the date of the examination.
[2019-04-11] MEDS: Ketorolac 30 MG/ML VIAL IVP (10:37)
[2019-04-11] MEDS: MAGNESIUM SULFATE 1 GM/100 ML BAG IVPB (10:41)
--- NOTE | 2019-04-11 11:24 | MERGE_ITS ---
*[facility]* *[facility]* [address] [place] [address] Date of study: 04/11/2019 Transthoracic Echocardiography M-mode, complete 2D, complete spectral Doppler, and color Doppler *STUDY CONCLUSIONS* Impressions: No evidence of endocarditis, however, sensitivity for this finding on TTE is <50%. Summary: 1. Left ventricle: The cavity size was normal. Wall thickness was normal. Systolic function was normal. The estimated ejection fraction was 60-65%. Wall motion was normal; there were no regional wall motion abnormalities. 2. Aortic valve: Moderate focal calcification involving the left coronary and noncoronary cusp. Transvalvular velocity was minimally increased. There was very mild stenosis. 3. Ascending aorta: The ascending aorta was at upper normal limits. 4. Mitral valve: Mildly calcified annulus. 5. Right ventricle: The cavity size was normal. Wall thickness was normal. Systolic function was normal. *PATIENT PRESENTATION* Height: 175.3cm (69in ) S/D Pressure: 152 / 77 Weight: 71.2kg (156.7lb ) BSA: 1.87m^2 Test start time: 11:24 AM. Test stop time: 12:16 PM. PERFORMING Unknown PERFORMING [facility] CANTEEN OPERATOR Thuy Crane CONSULTING Amanda Bradford Yelena A REFERRING Kogan, Yelena A *PROCEDURE DATA* Procedure information: This study was interpreted by [facility]. Pertinent images and digital data are archived for permanent storage and are available for subsequent review. No prior study was available for comparison. Study status: Routine. Transthoracic echocardiography. M-mode, complete 2D, complete spectral Doppler, and color Doppler. A Transthoracic Echocardiogram was performed. Scanning was performed from the parasternal, apical, subcostal, and suprasternal notch acoustic windows. Images were obtained using an [employer] SC 2000 cardiac ultrasound machine. Study completion: The patient tolerated the procedure well. History: PMH: Fever, murmur, ? Endocarditis. *CARDIAC ANATOMY* Left ventricle: The cavity size was normal. Wall thickness was normal. Systolic function was normal. The estimated ejection fraction was 60-65%. Wall motion was normal; there were no regional wall motion abnormalities. Aortic valve: Trileaflet; normal thickness leaflets. Moderate focal calcification involving the left coronary and noncoronary cusp. Mobility was not restricted. Doppler: Transvalvular velocity was minimally increased. There was very mild stenosis. There was no significant regurgitation. VTI ratio of LVOT to aortic valve: 0.89. Valve area (VTI): 2.4cm^2. Indexed valve area (VTI): 1.3cm^2/m^2. Peak velocity ratio of LVOT to aortic valve: 0.93. Valve area (Vmax): 2.5cm^2. Indexed valve area (Vmax): 1.3cm^2/m^2. Mean velocity ratio of LVOT to aortic valve: 0.75. Valve area (Vmean): 2cm^2. Indexed valve area (Vmean): 1.1cm^2/m^2. Mean gradient (S): 8.7mm Hg. Peak gradient (S): 13.1mm Hg. Aorta: Aortic root: The aortic root was normal in size. Ascending aorta: The ascending aorta was at upper normal limits. Mitral valve: Mildly calcified annulus. Mobility was not restricted. Doppler: Transvalvular velocity was within the normal range. There was no evidence for stenosis. There was no significant regurgitation. Valve area by pressure half-time: 2.6cm^2. Indexed valve area by pressure half-time: 1.4cm^2/m^2. Peak gradient (D): 3.8mm Hg. Left atrium: The atrium was normal in size. Right ventricle: The cavity size was normal. Wall thickness was normal. Systolic function was normal. Pulmonic valve: Poorly visualized. Doppler: Transvalvular velocity was within the normal range. There was no evidence for stenosis. There was no significant regurgitation. Peak gradient (S): 6.4mm Hg. Tricuspid valve: Poorly visualized. Structurally normal valve. Doppler: Transvalvular velocity was within the normal range. There was no evidence for stenosis. There was no significant regurgitation. Pulmonary artery: Poorly visualized. Pulmonary systolic pressure was within the normal range. Right atrium: The atrium was normal in size. Pericardium: There was no pericardial effusion. Systemic veins: Inferior vena cava: The vessel was normal in size. The respirophasic diameter changes were in the normal range (greater than or equal to 50%), consistent with normal central venous pressure. Measurements Left ventricle Value Reference LV ID, ED, PLAX 4.5 cm 3.5 - 6.0 LV ID, ES, PLAX 3.0 cm 2.1 - 4.0 LV PW thickness, ED, PLAX 0.9 cm LV end-diastolic volume, 1-p A2C 121 ml LV ejection fraction, 1-p A2C 64 % LV end-diastolic volume, 1-p A4C 103 ml LV ejection fraction, 1-p A4C 58 % LV e', lateral 0.123 m/sec LV E/e', lateral 8 LV e', medial 0.082 m/sec LV E/e', medial 12 LV e', average 0.103 m/sec LV E/e', average 9 Ventricular septum Value Reference IVS thickness, ED, PLAX 1.0 cm LVOT Value Reference LVOT ID, A-P 1.8 cm LVOT area 2.7 cm^2 LVOT peak velocity, S 1.68 m/sec LVOT mean velocity, S 1.06 m/sec LVOT VTI, S 29.5 cm LVOT peak gradient, S 11.3 mm Hg LVOT mean gradient, S 5.5 mm Hg Stroke volume (SV), LVOT DP 79 ml Stroke index (SV/bsa), LVOT DP 42 ml/m^2 Aortic valve Value Reference Aortic valve peak velocity, S 1.8 m/sec Aortic valve mean velocity, S 1.4 m/sec Aortic valve VTI, S 33.0 cm Aortic mean gradient, S 8.7 mm Hg Aortic peak gradient, S 13.1 mm Hg VTI ratio, LVOT/AV 0.89 Aortic valve area, VTI 2.4 cm^2 Velocity ratio, peak, LVOT/AV 0.93 Aortic valve area, peak velocity 2.5 cm^2 Velocity ratio, mean, LVOT/AV 0.75 Aortic valve area, mean velocity 2 cm^2 Aortic valve area/bsa, mean velocity 1.1 cm^2/m^2 Aorta Value Reference Aortic root ID, ED 3.2 cm Ascending aorta ID, A-P, S 3.7 cm Left atrium Value Reference LA ID, A-P, ES 3.4 cm LA ID/bsa, A-P 1.8 cm/m^2 <=2.2 LA volume, ES, 2-p 41 ml LA volume/bsa, ES, 2-p 22 ml/m^2 LA/aortic root ratio 1.07 Mitral valve Value Reference Mitral E-wave peak velocity 0.97 m/sec Mitral A-wave peak velocity 0.95 m/sec Mitral deceleration time (H) 294 ms 150 - 230 Mitral pressure half-time 85 ms Mitral peak gradient, D 3.8 mm Hg Mitral E/A ratio, peak 1.02 Mitral valve area, PHT, DP 2.6 cm^2 Tricuspid valve Value Reference Tricuspid regurg peak velocity 2.8 m/sec Tricuspid peak RV-RA gradient 32.2 mm Hg Right atrium Value Reference RA area, ES, A4C 14.3 cm^2 8.3 - 19.5 Pulmonic valve Value Reference Pulmonic peak gradient, S 6.4 mm Hg Legend: (L) and (H) david values outside specified reference range. I have personally reviewed the images and have reviewed and edited the reported findings. Electronically signed by Don Armijo 04/11/2019 13:09
[2019-04-11] MEDS: Normal Saline 1,000 ML 500 ML IV (11:35)
[2019-04-11] MEDS: cefTRIAXone 1 GM/50 ML BAG IVPB (12:54)
[2019-04-11 13:22] LABS: Ammonia 35 umol/L (11-32); C-Reactive Protein 0.98 mg/dL (0.0-0.3)
[2019-04-11 13:47] LABS: Procalcitonin 3.4 ng/mL
[2019-04-11] MEDS: AZITHROMYCIN 500 MG in Normal Saline 250 ML 250 MG IVPB (13:49)
[2019-04-11] MEDS: Heparin 5,000 UNITS/ML VIAL 5000 UNITS SC (15:03)
--- NOTE | 2019-04-11 15:31 | IN_ITS ---
Date of service: 04/11/19 Time of Service: 03:06 PT Notes Inpatient Physical Therapy Evaluation Date: 04/11/2019 Referring Doctor: PT Orders: PT CONSULT: Eval/treat Precautions: Fall. Standard. Patient Profile/Admitting Diagnosis: Patient is a 63-year-old incarcerated male with past medical history significant for alcohol and IV drug abuse, cirrhosis, hepatitis C, COPD, hypertension who presented to the ED today from halfway with chief complaints of shortness of breath, not feeling well, chest pain, shortness of breath, and fever. CT angiography of the chest this morning showed no evidence of pulmonary embolus, thoracic aortic dissection nor aneurysm but with changes suspicious for pneumonia. Patient reportedly tripped and fell last night as well and hit the floor with his left lower back first. X-ray of the lumbar spine revealed no acute abnormality nor fracture. PMHX: Cirrhosis of liver Social History/Home Situation: Incarcerated male admitted for management of suspected pneumonia Current Functional Limitations: None Equipment Owned/DME: None Subjective: Patient is agreeable to a PT consult today. He reports no difficulty with breathing and feels okay and removed nasal cannula off stating that he does not need it. He denies headache, chest pain, and dizziness. Objective: General Observation: Patient seen resting in bed. 2 half-way officers present throughout PT session. Patient chained to bed via R ankle and left wrist. IV in R UE. Oxygen supplementation at 2 L/min via NC. Mental Status: Alert and oriented x4 Pain: 0/10 although he states that his left backside is achy. Vital Signs: Oxygen saturation stayed between 94% to 99% on room air even after strength testing of level of the lower extremities. ROM: Right Upper Extremity: Shoulder Flexion WFL. Shoulder abduction WFL. Elbow flexion WFL. Wrist flexion WFL. Functional opening and closing of hand WFL. Left Upper Extremity: Shoulder Flexion WFL. Shoulder abduction WFL. Elbow flexion WFL. Wrist flexion WFL. Functional opening and closing of hand WFL. Right Lower Extremity: Hip flexion WFL. Hip abduction WFL. Knee flexion WFL. Ankle dorsiflexion WFL. Ankle plantarflexion WFL. Left Lower Extremity: Hip flexion WFL. Hip abduction WFL. Knee flexion WFL. Ankle dorsiflexion WFL. Ankle plantarflexion WFL. Strength: Right Upper Extremity: Shoulder flexors 5/5. Shoulder abductors 5/5. Elbow flexors 5/5. Elbow extensors 5/5. Residential Field Manager strong. Left Upper Extremity: Shoulder flexors 5/5. Shoulder abductors 5/5. Elbow flexors 5/5. Elbow extensors 5/5. Residential Field Manager strong. Right Lower Extremity: Hip flexors 5/5. Hip abductors 5/5. Knee flexors 5/5. Knee extensors 5/5. Ankle dorsiflexors 5/5. Ankle plantarflexors 5/5. Left Lower Extremity:Hip flexors 5/5. Hip abductors 5/5. Knee flexors 5/5. Knee extensors 5/5. Ankle dorsiflexors 5/5. Ankle plantarflexors 5/5. Sensation: Intact as to pain and pressure on bilateral lower extremities. Patient does report tingling sensation more on the left lower extreme than the right. Bed Mobility/Transfers: Rolling independent Supine to sit independent Sit to supine independent Sit to stand independent Stand to sit independent Bed to chair independent Chair to bed independent Gait: Patient was able to tolerate in room 25 feet x 2 without an assistive device without pain complaint on left lower back area. No remarkable gait deviation observed. Balance: Static Sitting: Normal Dynamic Sitting: Normal Static Standing: Good Dynamic Standing: Good Special Tests: Mobility Limitations Standardized Measure [facility] AM-PAC 6 clicks Basic Mobility Inpatient Short Form: Raw Score: 24 CMS Score: 0% deficit 30-second chair rise score of 15 indicative of good lower extremity strength and dynamic standing balance signifying decrease risk for falls. Informed Consent/Education: Patient instructed in purpose of PT consult. Assessment: Patient demonstrates no limitation of joint range of motion and good to normal strength on bilateral upper and lower extremities. AM PAC score of 24 indicates 0% functional deficit and 30-second nd chair rice score of 15 signifies good lower extremity strength and good dynamic standing balance. Patient is assessed as a 55779 low complexity based on the following: History: 63-year old incarcerated male here for management of suspected pneumonia Examination: Demonstrable impairment in strength, balance, and range of motion with underlying impairments and functional limitations as documented above Presentation: Stable Decision Makin low complexity Plan of Care/Treatment Plan: Skilled physical therapy services are not warranted at this time as patient remains independent with all mobility ADL performance without the need for an assistive device. DISCHARGE RECOMMENDATIONS: None at this time. Discharge back to half-way when medically stable. TREATMENT CODE/TIME: 05522 x 23 minutes beginning 3:06 PM. Thank you very much for this referral. Chiqui Guzman PT, DPT, CLT [facility]
--- NOTE | 2019-04-11 15:37 | CHAPLAIN ---
An ER nurse left a message letting me know that Dominick wanted a Bible. I brought him a Bible and loaned him some reading glasses. He asked me to return to say a prayer with him and I'll do that this afternoon.
[2019-04-11] MEDS: MAGNESIUM SULFATE 4 GM/100 ML BAG IVPB (15:40)
[2019-04-11] MEDS: Acetaminophen 325 MG TAB PO (16:57)
[2019-04-11 17:19] LABS: Lactate-non-spesis 1.7 mmol/l (0.6-1.4)
--- NOTE | 2019-04-11 17:21 | HPE_ITS ---
Date of service: 04/11/19 Time of Service: 17:21 Assessment and Plan (1) Multifocal pneumonia: Current visit: Yes Status: Acute Febrile on admission, findings c/w multifocal pneumonia on CXR. Continue empiric azithromycin, rocephin, await blood and sputum culture results. (2) Hematoma and contusion: Current visit: Yes Status: Acute Avoid Nsaids and chemical DVT ppx. Monitor H/H and size of hematoma. (3) Back pain: Current visit: Yes Status: Acute provide lidocaine patch. Likely due to hematoma/contusion. PT consult (4) HTN (hypertension): Current visit: No Status: Chronic Continue losartan (5) COPD (chronic obstructive pulmonary disease): Current visit: No Status: Chronic Not in juan pablo acute exacerbation at this time. Continue mometasone, provide nebs (6) Cirrhosis of liver: Current visit: No Status: Chronic Likely cause of thrombocytopenia. Monitor for encephalopathy. Low sodium diet. (7) DVT prophylaxis: Current visit: Yes Status: Acute TEDs + SCD's. 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 In the ED, the patient was found to be febrile to 104.4 and to be short of breath. He was found to have multifocal pneumonia on CXR. He was initiated on IVF, azithromycin, rocephin. We were asked to admit the patient for further care. At the time of me talking to the patient, he stated he had no idea that there was a problem with his breathing. He felt to be at his baseline. He stated that he would be short of breath in an hour if he didn't get his albuterol. He denies chest pain, complains of back pain. Review of Systems Review of Systems 12 systems reviewed. Pertinent positives and negatives are as per HPI. [facility] Medical History (Updated 04/11/19 @ 19:22 by Amanda Bradford MD) Cirrhosis (Acute) COPD (chronic obstructive pulmonary disease) (Chronic) Hepatitis C (Chronic) History of alcohol abuse (Acute) History of intravenous drug use in remission (Acute) HTN (hypertension) (Chronic) Psoriasis (Chronic) Splenomegaly (Acute) Surgical History (Updated 04/11/19 @ 17:29 by Amanda Bradford MD) History of cardiac catheterization (Resolved) History of esophagogastroduodenoscopy (EGD) (Resolved ~08/20/18) History of tonsillectomy (Chronic) Family History (Updated 04/11/19 @ 17:30 by Amanda Bradford MD) Mother Heart disease Diabetes Hypertension Father Heart disease Stroke Diabetes Hypertension Paternal Uncle Stroke Social History Smoking/Tobacco Use Status: Former Tobacco Use Alcohol Intake: former Drug use: Current Sobriety Substance use type: former substance user and methamphetamine Do you feel safe at home: Yes Do you feel safe in your relationship?: Yes Meds Home Medications Medication Instructions Recorded Confirmed Type amitriptyline 10 mg tablet 20 mg PO DAILY 06/04/18 04/11/19 History ibuprofen 200 mg tablet 200 mg PO BID PRN tab 06/04/18 04/11/19 History levalbuterol tartrate 45 2 inh IH TID PRN gm 06/04/18 04/11/19 History mcg/actuation aerosol inhaler mometasone 220 mcg (30 doses) 1 inh IH DAILY each 06/04/18 04/11/19 History breath activated powder inhaler triamcinolone acetonide 0.1 % 1 applic TP DAILY 06/04/18 04/11/19 History topical cream losartan 50 mg PO DAILY 04/11/19 04/11/19 History Allergies Allergy/AdvReac Type Severity Reaction Status Date / Time No Known Allergies Allergy Verified 04/11/19 08:44 Exam Narrative Exam Narrative: General: Middle-aged male, anxious/hyperactive, he has difficulty focusing on the interview, A&OX3, sitting comfortably in bed Neurological: A&Ox3, no obvious focal deficits, he is able to move his LUE/LLE Psychiatric: anxious/hyperactive Skin: Left lower back with what appears to be a developing hematoma; abrasion is dressed - c/d/i HEENT: atraumatic, normocephalic, EOMI, dry MM, clear oropharynx, no submandibular or cervical lymphadenopathy, no goiter or JVD Cardiovascular: RRR, quiet DOMINIQUE Lungs: diminished at B bases with egophony Gastrointestinal: abdomen is soft, nontender, nondistended Extremities: no e/c/c BLE's, 1+ pedal pulses B Results Imaging Additional studies: CTA chest: 1. No evidence of pulmonary embolus, thoracic aortic dissection or aneurysm. 2. Multifocal air space opacities suspicious for pneumonia. A follow up chest x-ray or CT scan of the chest is recommended to document complete resolution. 3. Mild central lobular emphysematous changes in the lungs 4. Findings of nodular liver suspicious for hepatic cirrhosis, splenomegaly 5. Compression deformities in the thoracic spine. No central spinal canal stenosis results. XR lumbar spine: No acute fractures or subluxations of the lumbar spine. Echo: 1. Left ventricle: The cavity size was normal. Wall thickness was normal. Systolic function was normal. The estimated ejection fraction was 60-65%. Wall motion was normal; there were no regional wall motion abnormalities. 2. Aortic valve: Moderate focal calcification involving the left coronary and noncoronary cusp. Transvalvular velocity was minimally increased. There was very mild stenosis. 3. Ascending aorta: The ascending aorta was at upper normal limits. 4. Mitral valve: Mildly calcified annulus. 5. Right ventricle: The cavity size was normal. Wall thickness was normal. Systolic function was normal. EKG: ST, HR 120, no acute ischemia Labs : 04/11/19 08:47 04/11/19 08:47 Laboratory Results - last 24 hr 04/11/19 04/11/19 04/11/19 08:47 08:47 08:47 WBC 11.55 H RBC 4.30 L Hgb 13.2 L Hct 38.3 L MCV 89.1 MCH 30.7 MCHC 34.5 RDW 15.0 H Plt Count 105 L MPV 9.1 Immature Gran % 0.3 Neutrophils % 92.2 Lymphocytes % 3.0 Monocytes % 3.6 Eosinophils % 0.7 Basophils % 0.2 Absolute Neutrophils 10.65 H Absolute Lymphocytes 0.35 L Absolute Monocytes 0.42 Absolute Eosinophils 0.08 Absolute Basophils 0.02 PT 10.8 INR 1.1 APTT 22.8 Sodium 141 Potassium 3.9 Chloride 99 Carbon Dioxide 27.7 Anion Gap 14.3 H BUN 17 Creatinine 1.00 Estimated GFR/1.73 m2 >= 60.00 Glucose 131 H Lactate Calcium 8.8 Magnesium 1.5 L Total Bilirubin 0.5 AST 16 ALT 21 Alkaline Phosphatase 89 Ammonia Troponin I < 0.05 C-Reactive Protein Total Protein 8.0 Albumin 3.4 Procalcitonin Urine Color Urine Clarity Urine pH Ur Specific [place] Urine Protein Urine Ketones Urine Blood Urine Nitrite Urine Bilirubin Urine Urobilinogen Ur Leukocyte Esterase Urine Glucose 04/11/19 04/11/19 04/11/19 09:00 09:15 13:00 WBC RBC Hgb Hct MCV MCH MCHC RDW Plt Count MPV Immature Gran % Neutrophils % Lymphocytes % Monocytes % Eosinophils % Basophils % Absolute Neutrophils Absolute Lymphocytes Absolute Monocytes Absolute Eosinophils Absolute Basophils PT INR APTT Sodium Potassium Chloride Carbon Dioxide Anion Gap BUN Creatinine Estimated GFR/1.73 m2 Glucose Lactate 2.7 H Calcium Magnesium Total Bilirubin AST ALT Alkaline Phosphatase Ammonia Troponin I C-Reactive Protein 0.98 H Total Protein Albumin Procalcitonin Urine Color Yellow Urine Clarity Clear Urine pH 6.0 Ur Specific [place] 1.015 Urine Protein Negative Urine Ketones Negative Urine Blood Negative Urine Nitrite Negative Urine Bilirubin Negative Urine Urobilinogen 0.2 Ur Leukocyte Esterase Negative Urine Glucose 100 04/11/19 04/11/19 04/11/19 13:00 13:00 17:10 WBC RBC Hgb Hct MCV MCH MCHC RDW Plt Count MPV Immature Gran % Neutrophils % Lymphocytes % Monocytes % Eosinophils % Basophils % Absolute Neutrophils Absolute Lymphocytes Absolute Monocytes Absolute Eosinophils Absolute Basophils PT INR APTT Sodium Potassium Chloride Carbon Dioxide Anion Gap BUN Creatinine Estimated GFR/1.73 m2 Glucose Lactate 1.7 H Calcium Magnesium Total Bilirubin AST ALT Alkaline Phosphatase Ammonia 35 H Troponin I C-Reactive Protein Total Protein Albumin Procalcitonin 3.4 Urine Color Urine Clarity Urine pH Ur Specific Bradley Urine Protein Urine Ketones Urine Blood Urine Nitrite Urine Bilirubin Urine Urobilinogen Ur Leukocyte Esterase Urine Glucose Last Vital Signs Temp 36.7 C 04/11/19 13:19 Pulse 94 H 04/11/19 13:19 Resp 20 04/11/19 13:19 BP 140/72 04/11/19 13:19 Pulse Ox 97 04/11/19 13:19
[2019-04-11] MEDS: Albuterol/Ipratropium 3 ML UPD VIAL UPD (17:45)
[2019-04-11] MEDS: guaiFENesin 600 MG TABCR PO (19:53)
[2019-04-11] MEDS: Mometasone 220 MCG 14 DOSE INHALER 1 PUFF IH (19:53)
[2019-04-11] MEDS: Lidocaine 5% Patch 1 PATCH TP (19:53)
[2019-04-11] MEDS: Benzonatate 100 MG CAP PO (19:53)
[2019-04-11] MEDS: Normal Saline 1,000 ML 150 ML IV (20:27)
[2019-04-12] VITALS (8 sets, daily range): BP systolic 134–178; BP diastolic 70–101; PULSE 74–88; RESP 2–18; TEMP 36.9–37.6; O2SAT 94–98
[2019-04-12] MEDS: Normal Saline 1,000 ML 150 ML IV ×4 (02:40→23:25)
[2019-04-12] MEDS: Acetaminophen 325 MG TAB PO ×2 (05:20→12:20)
[2019-04-12] MEDS: Patch Removal 1 EACH TP (06:36)
[2019-04-12 07:24] LABS: Lactate-non-spesis 0.8 mmol/l (0.6-1.4)
[2019-04-12 07:39] LABS: Abs Immature Grans 0.02 k/cumm (0.0-0.09); Absolute Basophil Count 0.02 k/cumm (0.0-0.2); Absolute Eosinophil Count 0.16 k/cumm (0.0-0.7); Absolute Lymphocyte Count 0.87 k/cumm (1.2-3.4); Absolute Monocyte Count 0.66 k/cumm (0.11-0.7); Absolute Neutrophil Count 8.01 k/cumm (1.2-6.7); Basophils % 0.2; Eosinophils % 1.6; HCT 29.6 % (40.0-50.0); HGB 10.1 g/dL (13.5-17.5); Immature Grans % 0.2; Lymphocytes % 8.9; Mean Corp. HGB Concentration 34.1 g/dL (32.0-36.0); Mean Corpuscular Hemoglobin 30.9 pg (27.0-33.0); Mean Corpuscular Volume 90.5 fL (80-95); Mean Platelet Volume 9.5 fL (8.0-11.0); Monocytes % 6.8; Neutrophils % 82.3; RBC 3.27 m/cumm (4.50-6.00); White Blood Cell Count 9.74 k/cumm (4.4-10.8)
[2019-04-12] MEDS: guaiFENesin 600 MG TABCR PO ×2 (07:43→20:56)
[2019-04-12] MEDS: Losartan 50 MG TAB PO (07:43)
[2019-04-12] MEDS: Benzonatate 100 MG CAP PO ×3 (07:43→20:55)
[2019-04-12 07:45] LABS: Anion Gap 7.9 mmol/L (3-11); BUN 15 mg/dL (7-18); C-Reactive Protein 4.75 mg/dL (0.0-0.3); CO2 27.1 mmol/L (21.0-32.0); CREATININE 1.05 mg/dL (0.70-1.30); Calcium 8.4 mg/dL (8.5-10.1); Chloride 107 mmol/L (98-107); Glucose 110 mg/dL (70-100); Magnesium 2.3 mg/dL (1.8-2.4); Potassium 4.3 mmol/L (3.5-5.1); Sodium 142 mmol/L (136-145)
[2019-04-12 08:13] LABS: Platelet Count 92 x1000/uL (130-400)
[2019-04-12 08:37] LABS: Procalcitonin 4.4 ng/mL
[2019-04-12] MEDS: Albuterol/Ipratropium 3 ML UPD VIAL UPD (08:42)
[2019-04-12] MEDS: Amitriptyline 10 MG TAB 20 MG PO (09:15)
[2019-04-12] MEDS: cefTRIAXone 1 GM/50 ML BAG IVPB (12:04)
[2019-04-12] MEDS: AZITHROMYCIN 500 MG in Normal Saline 250 ML 250 MG IVPB (13:40)
--- NOTE | 2019-04-12 14:31 | PHARADMIT ---
Admission Pharmacy Clinical Review SEPSIS DUE TO CAP Code Status Full Code Current Weight Wgt-70.8 kg Renally Cleared and Narrow Therapeutic Index Meds CrCl~70mL/min Meds-OK QTc Value / Action Taken QTc-444 NA BP Control, Fever BP- 134/73 Tmax- 37.6C Electrolytes reviewed Na-142 K+4.3 Mag-2.3 DVT Prophylaxis TEDS, SCDs Opiate Usage / Scheduled Bowel Regimen Ordered No Yes Plt/SCr for Heparin / Enoxaparin Plts-92 SCr-1.05 INR for Warfarin inr-1.1 H/H stable, WBC/Bands H&H-10.1/29.6 WBC- 9.74 Antibiotic appropriateness Azithromycin, Rocephin Cultures and Sensitivities Sputum-neg, Blood-no growth/24hr Surgical ABX d/c within 24 hr NA DM control / Insulin Dosing BG- 110 Heart Failure (Check EF%) (SAVANNAH's, B-Block, Diuretics) Losartan IV to PO Switch No Home Meds Reviewed Yes Home Meds Not Ordered Ibuprofen Comments R-CRP 4.75
[2019-04-12] MEDS: Ibuprofen 400 MG TAB PO (16:01)
--- NOTE | 2019-04-12 19:25 | PGE_ITS ---
Date of Service Date of service: 04/12/19 Time of Service: 19:26 Assessment and Plan (1) Multifocal pneumonia: Current visit: Yes Status: Acute Appears improved as patient has been afebrile. Continue day #2 of antibiotic therapy with Ceftriaxone and Azithromycin. If he remains asymptomatic and afebrile, plan on transition to oral therapy and discharge in the morning. Sputum Culture unrevealing, and blood cultures negative. Given the extent of findings a follow-up CT in the future is warranted to ensure resolution of findings. (2) Hematoma and contusion: Current visit: Yes Status: Acute Continue pain control. (3) HTN (hypertension): Current visit: No Status: Chronic Currently on ARB. (4) COPD (chronic obstructive pulmonary disease): Current visit: No Status: Chronic Appears quiescent despite pneumonia. Continue prn nebs, treatment of underlying infection, and monitor. (5) Cirrhosis of liver: Current visit: No Status: Chronic On basis of prior HCV and EtOH abuse. Appears compensated, with synthetic function intact. (6) DVT prophylaxis: Current visit: Yes Status: Acute Continue to hold chemical prophylaxis due to hematoma. Continue and ensure SCDs, TEDs. Subjective Interval history since last seen: 63 year old incarcated man with a prior history of COPD and HCV Cirrhosis, admitted from [facility] Emergency Department with a diagnosis of Pneumonia. Mr. 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 He also has a history of HCV, treated, with subsequent development of Cirrhosis. He suffered a mechanical fall while at the [place] [facility], and brought in for evaluation after hitting the left side of his lower back with onset of significant pain. Imaging of his back with a Lumbar Xray was negative for an acute fracture. However, the patient was noted to be febrile, and although reportedly asymptomatic, a CT of the chest was positive for Multifocal Pneumonia. Evidence of a cirrhotic liver by imaging was also present. The patient was referred for admission for further evaluation and treatment. This morning Mr. Camarena reports breathing continued at baseline. He remains afebrile. He does have pain at site of his injury, but otherwise has no complaints. Exam Narrative Exam Narrative: General: Patient appears comfortable, AAOX3, NAD Neck: Supple Skin: Left lower back with a likely hematoma and overlying echymosis CV: Regular, nontachycardic, S1S2, No rubs, murmurs, or gallops. Pulmonary: Clear to auscultation bilaterally, no crackles, wheezing, or rhonchi Abdomen: + Bowel Sounds, soft, nontender, nondistended Vascular: No lower extremity edema Neurologic: CN II-XII grossly intact. No focal deficits. Psych: Normal mood and affect. Objective Objective Clinical Data: Abnormal lab results 04/12/19 04/12/19 Range/Units 07:10 07:10 RBC 3.27 L (4.50-6.00) m/cumm Hgb 10.1 L D (13.5-17.5) g/dL Hct 29.6 L D (40.0-50.0) % RDW 15.0 H (11.8-14.1) % Plt Count 92 L (130-400) x1000/uL Absolute Neutrophils 8.01 H (1.2-6.7) k/cumm Absolute Lymphocytes 0.87 L (1.2-3.4) k/cumm Glucose 110 H (70-100) mg/dL Calcium 8.4 L (8.5-10.1) mg/dL C-Reactive Protein 4.75 H (0.0-0.3) mg/dL Vital Signs Temperature 36.9 C 04/12/19 16:02 Temperature Source Tympanic 04/12/19 16:02 Pulse 85 04/12/19 16:02 Pulse Rhythm Regular 04/12/19 07:40 Pulse 101 H 04/11/19 11:01 Respiratory Rate 18 04/12/19 16:02 Respiratory Effort Short of Breath 04/12/19 07:40 Respiratory Depth Normal 04/12/19 07:40 Respiratory Pattern Normal 04/12/19 07:40 Blood Pressure 159/86 H 04/12/19 16:02 Blood Pressure Mean 87 04/11/19 11:01 Pulse Oximetry 98 04/12/19 16:02 Oxygen Delivery Method Room Air 04/12/19 16:02 Oxygen Flow Rate 0 04/12/19 16:02 Pain Level 2 04/12/19 17:01 Comment 04/12/19 12:00 Intake & Output 04/11/19 04/12/19 04/12/19 23:59 11:59 23:59 Intake Total 2580 / 4680 2522.5 / 4612.5 2090.0 / 4612.5 Output Total 999 / 1875 450 / 1200 750 / 1200 Balance 1580 / 2805 2072.5 / 3412.5 1340.0 / 3412.5 Weight 70.1 kg 70.8 kg Intake: IV 800 / 2900 1972.5 / 3272.5 1300.0 / 3272.5 Oral 1780 / 1780 550 / 1340 790 / 1340 Output: Urine 999 / 5 450 / 1200 750 / 1200 Other: Urine Color Yellow Yellow Pale Urine Appearance Clear Clear Clear Urine Odor Normal None Comment correctional staff empty urinal voided into toilet Stool Size Large Stool Characteristics Soft Formed Brown Voiding Methods Urinal Urinal Urinal Laboratory Results WBC 9.74 k/cumm (4.4-10.8) 04/12/19 07:10 RBC 3.27 m/cumm (4.50-6.00) L 04/12/19 07:10 Hgb 10.1 g/dL (13.5-17.5) L D 04/12/19 07:10 Hct 29.6 % (40.0-50.0) L D 04/12/19 07:10 MCV 90.5 fL (80-95) 04/12/19 07:10 MCH 30.9 pg (27.0-33.0) 04/12/19 07:10 MCHC 34.1 g/dL (32.0-36.0) 04/12/19 07:10 RDW 15.0 % (11.8-14.1) H 04/12/19 07:10 Plt Count 92 x1000/uL (130-400) L 04/12/19 07:10 MPV 9.5 fL (8.0-11.0) 04/12/19 07:10 Immature Gran % 0.2 04/12/19 07:10 82.3 04/12/19 07:10 8.9 04/12/19 07:10 6.8 04/12/19 07:10 1.6 04/12/19 07:10 0.2 04/12/19 07:10 Absolute Neutrophils 8.01 k/cumm (1.2-6.7) H 04/12/19 07:10 Absolute Lymphocytes 0.87 k/cumm (1.2-3.4) L 04/12/19 07:10 Absolute Monocytes 0.66 k/cumm (0.11-0.7) 04/12/19 07:10 Absolute Eosinophils 0.16 k/cumm (0.0-0.7) 04/12/19 07:10 Absolute Basophils 0.02 k/cumm (0.0-0.2) 04/12/19 07:10 PT 10.8 sec (9.3-11.0) 04/11/19 08:47 INR 1.1 (0.9-1.1) 04/11/19 08:47 APTT 22.8 sec (21.0-31.4) 04/11/19 08:47 Sodium 142 mmol/L (136-145) 04/12/19 07:10 Potassium 4.3 mmol/L (3.5-5.1) 04/12/19 07:10 Chloride 107 mmol/L (98-107) 04/12/19 07:10 Carbon Dioxide 27.1 mmol/L (21.0-32.0) 04/12/19 07:10 7.9 mmol/L (3-11) 04/12/19 07:10 BUN 15 mg/dL (7-18) 04/12/19 07:10 1.05 mg/dL (0.70-1.30) 04/12/19 07:10 >= 60.00 (mL/min/1.73m2) 04/12/19 07:10 Glucose 110 mg/dL (70-100) H 04/12/19 07:10 0.8 mmol/l (0.6-1.4) 04/12/19 07:10 Calcium 8.4 mg/dL (8.5-10.1) L 04/12/19 07:10 Magnesium 2.3 mg/dL (1.8-2.4) 04/12/19 07:10 0.5 mg/dL (0.2-1.0) 04/11/19 08:47 AST 16 U/L (15-37) 04/11/19 08:47 ALT 21 U/L (12-78) 04/11/19 08:47 89 U/L (46-116) 04/11/19 08:47 35 umol/L (11-32) H 04/11/19 13:00 < 0.05 ng/mL (0.00-0.06) 04/11/19 08:47 4.75 mg/dL (0.0-0.3) H 04/12/19 07:10 8.0 g/dL (6.4-8.2) 04/11/19 08:47 3.4 g/dL (3.4-5.0) 04/11/19 08:47 4.4 ng/mL 04/12/19 07:10 Yellow (Yellow) 04/11/19 09:15 Clear (Clear) 04/11/19 09:15 6.0 (5-8) 04/11/19 09:15 Ur Specific [place] 1.015 (1.005-1.025) 04/11/19 09:15 Negative mg/dL (Negative) 04/11/19 09:15 Negative mg/dL (Negative) 04/11/19 09:15 Negative (Negative) 04/11/19 09:15 Negative (Negative) 04/11/19 09:15 Negative (Negative) 04/11/19 09:15 0.2 EU/dL (Up TO 0.2) 04/11/19 09:15 Ur Leukocyte Esterase Negative (Negative) 04/11/19 09:15 100 mg/dL (Negative) 04/11/19 09:15
--- NOTE | 2019-04-12 19:28 | INITIAL_ITS ---
Care Management Initial Assess REASON FOR HOSPITALIZATION:: Sepsis Due to CAP PAST MEDICAL HISTORY/PAST SURGICAL HISTORY:: Medical: Cirrhosis (Acute), COPD (chronic obstructive pulmonary disease) (Chronic), Hepatitis C (Chronic), History of alcohol abuse (Acute). History of intravenous drug use in remission (Acute), HTN (hypertension) (Chronic), Psoriasis (Chronic), Splenomegaly (Acute). Surgical: History of cardiac catheterization (Resolved), History of esophagogastroduodenoscopy (EGD) (Resolved ~08/20/18), History of tonsillectomy (Chronic) PREVIOUS FUNCTIONAL STATUS/SOCIAL/FAMILY SUPPORTS:: [facility] CURRENT FUNCTIONAL STATUS:: Resting in bed. [employer] at bedside. Ankle cuffs attached to bed. ADVANCE DIRECTIVES:: None on file Has patient been provided with information about the portal?: No Did the patient sign up for the portal?: No CODE STATUS:: Full Code INSURANCE COVERAGE / FINANCIAL ISSUES:: [facility] CURRENT HOME/COMMUNITY SERVICES/EQUIPMENT:: None PRIMARY CARE PHYSICIAN:: [facility] POTENTIAL DISCHARGE NEEDS:: None identified PATIENT/FAMILY EDUCATION NEEDS:: Discharge instructions ANTICIPATED BARRIERS TO DISCHARGE:: None identified TRANSP[facility]ATION:: [facility] PLAN:: Return to the [facility] and they will arrange transportation.
[2019-04-12] MEDS: Lidocaine 5% Patch 1 PATCH TP (20:56)
[2019-04-12] MEDS: Mometasone 220 MCG 14 DOSE INHALER 1 PUFF IH (20:56)
[2019-04-13 01:06] VITALS: RESP 1; RESP 8; O2SAT 96
[2019-04-13] MEDS: Albuterol/Ipratropium 3 ML UPD VIAL UPD (01:06)
[2019-04-13] MEDS: Ibuprofen 400 MG TAB PO (01:11)
[2019-04-13 01:36] VITALS: RESP 1; RESP 8
[2019-04-13] MEDS: Patch Removal 1 EACH TP (06:49)
[2019-04-13 07:40] VITALS: BP 176/80; PULSE 86; RESP 18; TEMP 36.2; O2SAT 100
[2019-04-13] MEDS: Losartan 50 MG TAB PO (07:47)
[2019-04-13] MEDS: Benzonatate 100 MG CAP PO (07:48)
[2019-04-13] MEDS: guaiFENesin 600 MG TABCR PO (07:48)
[2019-04-13] MEDS: Normal Saline 1,000 ML 150 ML IV (10:26)
[2019-04-13] MEDS: cefTRIAXone 1 GM/50 ML BAG IVPB (12:18)
--- NOTE | 2019-04-13 12:21 | W.PM.DS.N ---
Date of service: 04/13/19 Time of Service: 12:22 DS: Diagnosis Discharge Diagnosis (1) Multifocal pneumonia: Status: Acute (2) Hematoma and contusion: Status: Acute (3) HTN (hypertension): Status: Chronic Discharge Plan Disposition Patient Disposition: OTHER Condition: Stable Discharge Details Chief Complaint: SOB Clinical Impression: Sepsis, Pneumonia Reason For Visit: SEPSIS DUE TO CAP Admit Date/Time: 04/11/19 10:55 Admit Provider: Amanda Bradford Attending Provider: Amanda Bradford Primary Care Provider: Kyra Mena ED Provider: Monique Francois Hospital Course Hospital Course: Chief Complaint: Fall with Back Pain HPI: 63 year old incarcated man with a prior history of COPD and HCV Cirrhosis, admitted from [facility] Emergency Department with a diagnosis of Pneumonia. Mr. 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 He also has a history of HCV, treated, with subsequent development of Cirrhosis. He suffered a mechanical fall while at the detention, and brought in for evaluation after hitting the left side of his lower back with onset of significant pain. Imaging of his back with a Lumbar Xray was negative for an acute fracture. However, the patient was noted to be febrile, and although reportedly asymptomatic, a CT of the chest was positive for Multifocal Pneumonia. Evidence of cirrhosis of the liver by imaging was also present. The patient was referred for admission for further evaluation and treatment. This morning Mr. Camarena reports breathing continued at baseline, but now with productive cough. He is continuing to complain of back pain, now reportedly in his left side as well. He remains afebrile. Hospital Course: (1) Multifocal pneumonia: Appears improved - even though Mr. Camarena did not complain of respiratory symptoms, he was initial febrile with a TMax of 40.2, and is now afebrile for over 48 hours with antibiotic therapy. Received 2 doses of Azithromycin and 3 doses of Ceftriaxone - to conclude with an additional 3 days of oral Azithromycin and 4 days of Cefpodoxime. Sputum Culture unrevealing, and blood cultures negative. Given the extent of findings a follow-up CT in the future is warranted to ensure resolution of findings within a few weeks. (2) Hematoma and contusion: No evidence of fracture by LSpine Xray. Patient with complaint of left side pain today as well, which may be an extension of the musculoskeletal pain related to his fall. No mention of rib fracture or other pathology by CT. Please note that there was evidence of compression deformities of T6-8, which does not appear to correlate with the site of his complaints, and are unlikely to be acute findings. Continue pain control with moderate dose NSAID and topical Lidoderm. (3) HTN (hypertension): Currently on ARB. (4) COPD (chronic obstructive pulmonary disease): Appears quiescent despite pneumonia. Continue home inhaler regimen at time of discharge. (5) Cirrhosis of liver: On basis of prior HCV and EtOH abuse. Appears compensated, with synthetic function intact. Imaging findings of noduler liver as well confirming diagnosis. (6) DVT prophylaxis: Chemical prophylaxis was held due to hematoma. SCD's, CHUCHO's ordered. (7) Disposition: Patient stable for discharge back to [facility] today. Home Meds and New Rx's Prescriptions: New lidocaine [Lidoderm] 5 % Adhesive Patch,Medicated 1 patch topical DAILY@1800 Qty: 14 RF: 0 azithromycin 250 mg tablet 250 mg PO DAILY 3 Days Qty: 3 RF: 0 cefpodoxime 200 mg tablet 200 mg PO BID Qty: 8 RF: 0 Continued amitriptyline 10 mg tablet 20 mg PO DAILY RF: 0 mometasone [Asmanex Twisthaler] 220 mcg (30 doses) aerosol powdr breath activated 1 inh IH DAILY RF: 0 ibuprofen 200 mg tablet 200 mg PO BID PRNRF: 0 triamcinolone acetonide 0.1 % cream 1 applic TP DAILY RF: 0 levalbuterol tartrate [Xopenex HFA] 45 mcg/actuation HFA aerosol inhaler 2 inh IH TID PRNRF: 0 losartan 50 mg Tablet 50 mg PO DAILY RF: 0 Discharge Instructions Stand Alone Forms: Nursing Discharge Form Referrals: Kyra Mena [Primary Care Provider] - Activity:: No Strenuous Activity Equipment/Supplies:: No Equipment Needed Diet:: As Tolerated Discharge Orders Discharge Orders: Discharge Order (Routine); Ordered 04/13/19 Ordered By: Tuan Rooney DS: Data Vitals/I&O Vitals and I&O: Vital Signs Temperature 36.2 C L 04/13/19 07:40 Temperature Source Tympanic 04/13/19 07:40 Pulse 86 07/21/19 07:40 Pulse Rhythm Regular 04/13/19 07:40 Pulse 101 H 04/11/19 11:01 Respiratory Rate 18 04/13/19 07:40 Respiratory Effort 04/13/19 07:40 Respiratory Depth Normal 04/13/19 07:40 Respiratory Pattern Normal 04/13/19 07:40 Blood Pressure 176/80 H 04/13/19 07:40 Blood Pressure Mean 87 04/11/19 11:01 Pulse Oximetry 100 04/13/19 07:40 Oxygen Delivery Method Room Air 04/13/19 07:40 Oxygen Flow Rate 0 04/13/19 07:40 Pain Level 0 04/13/19 02:11 Comment 04/12/19 23:30 Intake & Output 04/12/19 04/13/19 04/13/19 23:59 11:59 23:59 Intake Total 2945.0 / 5467.5 1360 / 1360 Output Total 750 / 1200 Balance 2195.0 / 4267.5 1360 / 1360 Intake: IV 2155.0 / 4127.5 1000 / 1000 Oral 790 / 1340 360 / 360 Output: Urine 750 / 1200 Other: Urine Color Pale Urine Appearance Clear Clear Urine Odor None Voiding Methods Toilet Completed studies during hospitalization [Text1]: Exam(s) a CT:CT chest PE CTA SYMPTOM/DIAGNOSIS: COUGH WITH GREEN SPUTUM, CHEST PAIN RADIATING TO BACK CT ANGIOGRAPHY OF THE CHEST: Routine examination was performed. No priors for comparison. There is no evidence of a pulmonary embolus. The thoracic aorta is intact. No evidence of aneurysm or dissection. Heart size is within normal limits. No significant pericardial effusion is seen. Coronary artery calcifications are present. There are scattered air space opacities involving both lower lobes, right middle lobe and left lingula. The tracheal air shadow is unremarkable. Mild central lobular emphysematous changes are seen in the lungs. No pneumothorax or pleural effusion is seen. Upper abdominal images show lobulated contour of the liver suggesting hepatic cirrhosis. The spleen also appears enlarged. There are compression deformities at T6 and T8. There is loss of approximately 20-30% of the height of the vertebral body. No retropulsion or significant central spinal canal stenosis is present. Multi-level degenerative changes are seen in the spine. IMPRESSION: 1. No evidence of pulmonary embolus, thoracic aortic dissection or aneurysm. 2. Multifocal air space opacities suspicious for pneumonia. A follow up chest x-ray or CT scan of the chest is recommended to document complete resolution. 3. Mild central lobular emphysematous changes in the lungs 4. Findings of nodular liver suspicious for hepatic cirrhosis, splenomegaly 5. Compression deformities in the thoracic spine. No central spinal canal stenosis results. Exam(s) 04/11/2019 a RAD:XR lumbar spine complete SYMPTOM/DIAGNOSIS: S/P FALL, R/O ACUTE FRACTURE LUMBAR SPINE: AP, lateral and bilateral oblique views. No priors for comparison. There are five lumbar type vertebral bodies. There is normal alignment. No spondylolysis or spondylolisthesis seen. No acute fractures or subluxations present. Moderately severe degenerative changes are present throughout the lumbar spine. There is contrast in the renal collecting systems from the patient's CT scan of the chest from the same day. IMPRESSION: No acute fractures or subluxations of the lumbar spine. --------- Exam(s) a US:US echocardiogram Date of study: 04/11/2019 Transthoracic Echocardiography M-mode, complete 2D, complete spectral Doppler, and color Doppler *STUDY CONCLUSIONS* Impressions: No evidence of endocarditis, however, sensitivity for this finding on TTE is <50%. Summary: 1. Left ventricle: The cavity size was normal. Wall thickness was normal. Systolic function was normal. The estimated ejection fraction was 60-65%. Wall motion was normal; there were no regional wall motion abnormalities. 2. Aortic valve: Moderate focal calcification involving the left coronary and noncoronary cusp. Transvalvular velocity was minimally increased. There was very mild stenosis. 3. Ascending aorta: The ascending aorta was at upper normal limits. 4. Mitral valve: Mildly calcified annulus. 5. Right ventricle: The cavity size was normal. Wall thickness was normal. Systolic function was normal. Labs on day of discharge: Preliminary micro results at discharge 04/11/19 09:00 Blood Culture - Preliminary Blood NO GROWTH 48 HOURS 04/11/19 09:18 Blood Culture - Preliminary Blood NO GROWTH 48 HOURS 04/11/19 18:55 Sputum Culture - Preliminary Sputum Staphylococcus Species Sofie Albicans Normal Clau Sputum Culture Preliminary 04/13/19-0750 Day 1 Result ISOLATES BELOW DAY 1 GROWTH MODERATE GROWTH ISOLATE 1 APPEARANCE Normal Clau Day 2 Result ISOLATES BELOW DAY 2 GROWTH SCANT GROWTH ISOLATE 1 APPEARANCE Gram Positive Clau ISOLATE 1 ACTION IDENTIFICATION TO FOLLOW DAY 2 GROWTH RARE GROWTH ISOLATE 2 APPEARANCE Yeast DAY 3 GROWTH MODERATE GROWTH ISOLATE 3 APPEARANCE Normal Clau Presumptive identification of SOFIE ALBICANS based on gram stain and morphology. Organism 1 STAPHYLOCOCCUS SPECIES GROWTH SCANT GROWTH Organism 2 SOFIE ALBICANS GROWTH RARE GROWTH Organism 3 NORMAL CLAU GROWTH MODERATE GROWTH Staph spec: Pending Gram Stain Final 04/11/19193 GRAM STAIN Many White Blood Cells Rare Epithelial Cells Rare Gram Positive [facility] Medical History Cirrhosis (Acute) COPD (chronic obstructive pulmonary disease) (Chronic) Hepatitis C (Chronic) History of alcohol abuse (Acute) History of intravenous drug use in remission (Acute) HTN (hypertension) (Chronic) Psoriasis (Chronic) Splenomegaly (Acute) Surgical History History of cardiac catheterization (Resolved) History of esophagogastroduodenoscopy (EGD) (Resolved ~08/20/18) History of tonsillectomy (Chronic) Family History Mother Heart disease Diabetes Hypertension Father Heart disease Stroke Diabetes Hypertension Paternal Uncle Stroke Social History Smoking/Tobacco Use Status: Former Tobacco Use Alcohol Intake: former Drug use: Current Sobriety Substance use type: former substance user and methamphetamine Do you feel safe at home: Yes Do you feel safe in your relationship?: Yes
[2019-04-13 12:43] VITALS: BP 180/95; PULSE 91; RESP 18; TEMP 37.5; O2SAT 98
--- NOTE | 2019-04-13 18:42 | CMDISCH_ITS ---
LACE Index Scoring Tool - Questions: Length of Stay (in days): 2 Acuity (Admit via E.D.?): Yes E.D. Visits: 1 - Answers: Total Score: 6 Risk of Readmission: Low Risk Care Management Discharge Reason for Hospitalization: Sepsis Due to CAP Discharge Plan: Return to the [facility]. [facility] will transport. Patient/Family Education Needs: Discharge instructions and follow up appointments.
== END 2019-04-13 13:08 | disposition home or self-care (01) | DRG 190 ==
LOC: ER 11:37 → MS 12:35
PROVIDERS: Admitting Provider Internal Medicine; Emergency Provider Physician Assistant; PCP Nurse Practitioner Adult Health; Visit Provider Internal Medicine
DX: J44.0 Chronic obstructive pulmonary disease with (acute) lower respiratory infection (principal); J15.211 Pneumonia due to Methicillin susceptible Staphylococcus aureus; S30.0XXA Contusion of lower back and pelvis, initial encounter; W19.XXXA Unspecified fall, initial encounter; Y92.149 Unspecified place in prison as the place of occurrence of the external cause; I10 Essential (primary) hypertension; B19.20 Unspecified viral hepatitis C without hepatic coma; K74.60 Unspecified cirrhosis of liver
CPT/HCPCS: 36415; 71275; 80048; 80053; 84145; 87040; 87077; 93005; 96361; 96365; 96367; 96375; 97161; 99223; 99232; 99239; 99285; 72110; 81003; 82140; 83605; 83735; 84484; 85025; 85610; 85730; 86140; 87070; 87186; 87205; 93010; 93306; 94640; J0456; J0696; J1644; J1885; J3475; J3490; J7620